=== PATIENT | male | born 1995 | race Caucasian/White ===

== ENCOUNTER 2020-12-16 09:04 | Emergency (ER) | payer OTHER ==
[~2020-12-16] VITALS: Ht 167.6 cm; Wt 81.6 kg
--- NOTE | 2020-12-16 09:10 | NUR ---
BIB [employer] FOR MED CLEARANCE, C/O RIGHT SIDED ABDOMINAL PAIN,TOLD HE HAS KIDNEY STONE AND GALLBLADDER PROBLEM 8 DAYS AGO AT [facility], TO ER BED 11, HOOKED O MONITOR, CHANGED TO HOSP GOWN, WARM BLANKET PROVIDED, NAD NOTED. DR LANDON AT BEDSIDE FOR EVAL
[2020-12-16] MEDS ORDERED: IBUPROFEN 600 MG TABLET PO ONE (09:30)
[2020-12-16] MEDS ORDERED: IBUPROFEN 600 MG TABLET ONE (09:35)
--- NOTE | 2020-12-16 09:37 | NUR ---
URINE SAMPLE COLLECTED AND SENT TO LAB
--- NOTE | 2020-12-16 09:41 | NUR ---
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
[2020-12-16 10:11] LABS: BASOPHILS % (AUTO) 0.4 % (0.0-2.0); EOSINOPHILS % (AUTO) 1.3 % (0.0-6.0); HEMATOCRIT 47 % (39-51); HEMOGLOBIN 15.1 g/dL (13.5-17.5); LYMPHOCYTES # (AUTO) 1.1 /CMM (0.8-4.8); MEAN CORPUSCULAR HGB CONC 33 g/dl (31.0-36.0); MEAN CORPUSCULAR VOLUME 83 fL (80-96); MONOCYTES # (AUTO) 0.7 /CMM (0.1-1.30); MONOCYTES % (AUTO) 8.2 % (2.0-12.0); NEUTROPHILS # (AUTO) 7.1 /CMM (1.8-8.9); NEUTROPHILS % (AUTO) 78.1 % (43.0-81.0); PLATELET COUNT (AUTO) 217 /CMM (150-450); RED BLOOD CELL COUNT(AUTO) 5.65 MIL/uL (4.5-6.0)
[2020-12-16 10:17] LABS: BILIRUBIN,URINE NEGATIVE (NEGATIVE); COLOR,URINE YELLOW (YELLOW); LEUKOCYTE ESTERASE ,URINE NEGATIVE (NEGATIVE); NITRITE, URINE NEGATIVE (NEGATIVE); PH,URINE 6.5 (5.0-8.0); PROTEIN,URINE TRACE mg/dl (NEGATIVE); UGLUCOSE NEGATIVE (NEGATIVE)
[2020-12-16 10:22] LABS: CALCIUM, SERUM 9.5 mg/dL (8.5-10.1); CREATININE 1.5 mg/dL (0.6-1.3); POTASSIUM 4.8 mmol/L (3.5-5.1)
[2020-12-16 10:30] LABS: BILIRUBIN,TOTAL 0.6 mg/dL (0.2-1.0); TOTAL PROTEIN, SERUM 7.5 g/dL (6.4-8.2)
[2020-12-16 10:38] LABS: BACTERIA,URINE Rare /HPF (None Seen); SQUAMOUS EPITHELIAL CELL,UR Rare /HPF (None Seen); WBC,URINE 0-2 /HPF (0-3)
[2020-12-16 10:38] LABS: BILIRUBIN,DIRECT 0.2 mg/dL (0.0-0.2)
--- NOTE | 2020-12-16 10:45 | NUR ---
ASSOCIATE PASTOR AT BEDSIDE FOR CAIT
--- NOTE | 2020-12-16 11:49 | NUR ---
Patient discharged in custody of [employer] Officer Donald #[id number] of [facility] in stable condition. Written and verbal after care instructions given. Patient and [employer] officers verbalizes understanding of instruction. Provided clinicals, lab and US copy for reference.
[2020-12-16 11:50] VITALS: BP 124/72
== END 2020-12-16 11:51 ==
LOC: ER 09:06
DX: K80.20 Calculus of gallbladder without cholecystitis without obstruction (principal); F17.200 Nicotine dependence, unspecified, uncomplicated; Z91.018 Allergy to other foods
CPT/HCPCS: 36415; 76705-TC; 80048-TC; 80076-TC; 81001; 83690-TC; 85025-TC